=== PATIENT | female | born 1990 | race Caucasian/White ===

== ENCOUNTER 2020-06-11 12:45 | Emergency (ER) | payer MEDICAID, OTHER ==
[2020-06-11] MEDS ORDERED: Sodium Chloride 0.9% 10 ML Syringe FLUSH PRN (13:01)
[2020-06-11] MEDS ORDERED: Sodium Chloride 0.9% 2.5 ML Syringe FLUSH PRN (13:01)
[2020-06-11] MEDS ORDERED: Sodium Chloride 0.9% 1,000 ML IV ONE (13:02)
[2020-06-11] MEDS ORDERED: Ondansetron 4 MG/2 ML SDV IVPUSH ONE (13:13)
[2020-06-11] MEDS ORDERED: HYDROmorphone 1 MG/ML Syringe IVPUSH ONE (13:13)
--- NOTE | 2020-06-11 13:27 | EDM.PDOC ---
ED HPI GENERAL MEDICAL PROBLEM - General Chief Complaint: Flank Pain Stated Complaint: R ABD FLANK PAIN Time Seen by Provider: 06/11/20 12:47 Source of Information: Reports: Patient, EMS - History of Present Illness INITIAL COMMENTS - FREE TEXT/NARRATIVE: History of present illness: 29-year-old female presenting brought by EMS with right flank pain since 9:00 this morning. She reports she has been trying to bear with the pain but has not been able to control it at home. She tried hot shower. Nothing made it better. She did report that she felt she needed to go to the bathroom but that did not relieve the pain either. She also feels the pain is similar to a pulling sensation in her right flank. No vomiting. No fevers or chills. No abdominal pain. No prior similar pain. EMS reported patient was slightly tachycardic and hypertensive but otherwise vital signs stable. They did give her 30 mg of IV Toradol. Review of systems: As per history of present illness and below otherwise all systems reviewed and negative. Past medical history: As per history of present illness and as reviewed below otherwise noncontributory. Surgical history: As per history of present illness and as reviewed below otherwise noncontributory. Social history: No reported history of drug or alcohol abuse. Methamphetamine use Family history: As per history of present illness and as reviewed below otherwise noncontributory. Physical exam: GEN: no acute distress, well appearing HEENT: Atraumatic, normocephalic, mucous membranes moist, Neck: supple. Lungs: No respiratory distress. Heart: RRR Abdomen: Soft, nondistended, nontender. Back: Right flank tenderness / CVA tenderness Extremities: Atraumatic. Neurovascularly intact. Neuro: Awake, alert, oriented. Neuro Exam nonfocal. Skin: warm, dry, no lesions Diagnostics: ED, labs, UA Therapeutics: Pain meds, IV fluids, Zofran MDM: Impression: [] Plan: [] Definitive disposition and diagnosis as appropriate pending reevaluation and review of above. 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 Has not yet taken anything prior to arrival here. EMS did give her 30 of Toradol which did not help with her pain. She did receive Dilaudid here which did improve her pain. UA shows blood but no infection. CT scan shows 1 to 1.5 mm kidney stone at the UVJ causing hydro nephrosis. As the patient is feeling significantly improved now, will discharge home with urology follow-up. Discussed with patient strict return instructions as well as plan for pain management ibuprofen 600 mg every 8 hours with the addition of [place] if pain is severe and need to take Flomax daily. We will also discussed with urology to ensure rapid follow-up for the patient. Last Recorded V/S: Last Vital Signs Temp 97.6 F 06/11/20 12:54 Pulse 83 06/11/20 15:47 Resp 20 06/11/20 15:47 BP 132/87 06/11/20 15:47 Pulse Ox 99 06/11/20 15:47 - Orders/Labs/Meds Orders: Active Orders 24 hr Category Date Time Status Sodium Chloride 0.9% [Saline Flush] Med 06/11/20 13:01 Active 10 ml FLUSH ASDIRECTED PRN Sodium Chloride 0.9% [Saline Flush] Med 06/11/20 13:01 Active 2.5 ml FLUSH ASDIRECTED PRN Saline Lock Insert [OM.PC] Stat Oth 06/11/20 13:01 Ordered Medication Orders Sodium Chloride (Saline Flush) 10 ml FLUSH ASDIRECTED PRN PRN Reason: Keep Vein Open Sodium Chloride (Saline Flush) 2.5 ml FLUSH ASDIRECTED PRN PRN Reason: Keep Vein Open Labs: Laboratory Tests 06/11/20 06/11/20 06/11/20 Range/Units 12:49 12:49 13:57 WBC 13.85 H (4.0-11.0) K/uL RBC 5.00 (4.30-5.90) M/uL Hgb 14.5 (12.0-16.0) g/dL Hct 44.1 (36.0-46.0) % MCV 88.2 (80.0-98.0) fL MCH 29.0 (27.0-32.0) pg MCHC 32.9 (31.0-37.0) g/dL RDW Std Deviation 41.4 (28.0-62.0) fl RDW Coeff of [place] 13 (11.0-15.0) % Plt Count 316 (150-400) K/uL MPV 10.30 (7.40-12.00) fL Neut % (Auto) 84.7 H (48.0-80.0) % Lymph % (Auto) 10.0 L (16.0-40.0) % [place] % (Auto) 4.5 (0.0-15.0) % Eos % (Auto) 0.4 (0.0-7.0) % Baso % (Auto) 0.4 (0.0-1.5) % Neut # (Auto) 11.7 H (1.4-5.7) K/uL Lymph # (Auto) 1.4 (0.6-2.4) K/uL [place] # (Auto) 0.6 (0.0-0.8) K/uL Eos # (Auto) 0.1 (0.0-0.7) K/uL Baso # (Auto) 0.1 (0.0-0.1) K/uL Nucleated RBC % 0.0 /100WBC Nucleated RBCs # 0 K/uL Sodium (136-145) mmol/L Potassium (3.5-5.1) mmol/L Chloride (98-107) mmol/L Carbon Dioxide (21.0-32.0) mmol/L BUN (7.0-18.0) mg/dL Creatinine (0.6-1.0) mg/dL Est Cr Clr Drug Dosing mL/min Estimated GFR (MDRD) ml/min Glucose (74-106) mg/dL Calcium (8.5-10.1) mg/dL Total Bilirubin (0.2-1.0) mg/dL AST (15-37) IU/L ALT (14-63) IU/L Alkaline Phosphatase (46-116) U/L Total Protein (6.4-8.2) g/dL Albumin (3.4-5.0) g/dL Globulin (2.6-4.0) g/dL Albumin/Globulin Ratio (0.9-1.6) Lipase (73-393) U/L Urine Color YELLOW Urine Appearance CLOUDY Urine pH 5.5 (5.0-8.0) Ur Specific [place] >= 1.030 (1.001-1.035) Urine Protein 30 H (NEGATIVE) mg/dL Urine Glucose (UA) NEGATIVE (NEGATIVE) mg/dL Urine Ketones NEGATIVE (NEGATIVE) mg/dL Urine Occult Blood LARGE H (NEGATIVE) Urine Nitrite NEGATIVE (NEGATIVE) Urine Bilirubin NEGATIVE (NEGATIVE) Urine Urobilinogen 0.2 (<2.0) EU/dL Ur Leukocyte Esterase NEGATIVE (NEGATIVE) Urine RBC 1-2 (0-2/HPF) Urine WBC 0-1 (0-5/HPF) Ur Epithelial Cells RARE (NONE-FEW) Amorphous Sediment MANY (NEGATIVE) Urine Bacteria RARE (NEGATIVE) Urinalysis Comment Urine HCG, Qual NEGATIVE (NEGATIVE) 06/11/20 Range/Units 13:57 WBC (4.0-11.0) K/uL RBC (4.30-5.90) M/uL Hgb (12.0-16.0) g/dL Hct (36.0-46.0) % MCV (80.0-98.0) fL MCH (27.0-32.0) pg MCHC (31.0-37.0) g/dL RDW Std Deviation (28.0-62.0) fl RDW Coeff of [place] (11.0-15.0) % Plt Count (150-400) K/uL MPV (7.40-12.00) fL Neut % (Auto) (48.0-80.0) % Lymph % (Auto) (16.0-40.0) % [place] % (Auto) (0.0-15.0) % Eos % (Auto) (0.0-7.0) % Baso % (Auto) (0.0-1.5) % Neut # (Auto) (1.4-5.7) K/uL Lymph # (Auto) (0.6-2.4) K/uL [place] # (Auto) (0.0-0.8) K/uL Eos # (Auto) (0.0-0.7) K/uL Baso # (Auto) (0.0-0.1) K/uL Nucleated RBC % /100WBC Nucleated RBCs # K/uL Sodium 137 (136-145) mmol/L Potassium 4.0 (3.5-5.1) mmol/L Chloride 103 (98-107) mmol/L Carbon Dioxide 25.2 (21.0-32.0) mmol/L BUN 10 (7.0-18.0) mg/dL Creatinine 0.9 (0.6-1.0) mg/dL Est Cr Clr Drug Dosing 69.60 mL/min Estimated GFR (MDRD) > 60.0 ml/min Glucose 100 (74-106) mg/dL Calcium 8.6 (8.5-10.1) mg/dL Total Bilirubin 0.4 (0.2-1.0) mg/dL AST 18 (15-37) IU/L ALT 19 (14-63) IU/L Alkaline Phosphatase 87 (46-116) U/L Total Protein 8.2 (6.4-8.2) g/dL Albumin 4.0 (3.4-5.0) g/dL Globulin 4.2 H (2.6-4.0) g/dL Albumin/Globulin Ratio 1.0 (0.9-1.6) Lipase 180 (73-393) U/L Urine Color Urine Appearance Urine pH (5.0-8.0) Ur Specific [place] (1.001-1.035) Urine Protein (NEGATIVE) mg/dL Urine Glucose (UA) (NEGATIVE) mg/dL Urine Ketones (NEGATIVE) mg/dL Urine Occult Blood (NEGATIVE) Urine Nitrite (NEGATIVE) Urine Bilirubin (NEGATIVE) Urine Urobilinogen (<2.0) EU/dL Ur Leukocyte Esterase (NEGATIVE) Urine RBC (0-2/HPF) Urine WBC (0-5/HPF) Ur Epithelial Cells (NONE-FEW) Amorphous Sediment (NEGATIVE) Urine Bacteria (NEGATIVE) Urinalysis Comment Urine HCG, Qual (NEGATIVE) Meds: Medications Generic Name Dose Route Start Last Admin Trade Name Mina PRN Reason Stop Dose Admin Sodium Chloride 10 ml 06/11/20 13:01 Saline Flush FLUSH ASDIRECTED PRN Keep Vein Open Sodium Chloride 2.5 ml 06/11/20 13:01 Saline Flush FLUSH ASDIRECTED PRN Keep Vein Open Discontinued Medications Generic Name Dose Route Start Last Admin Trade Name Freq PRN Reason Stop Dose Admin Hydrocodone Bitart/Acetaminophen 1 tab 06/11/20 16:12 [place] 325-5 Mg PO 06/11/20 16:13 ONETIME ONE Hydromorphone HCl 1 mg 06/11/20 13:13 06/11/20 13:21 Dilaudid IVPUSH 06/11/20 13:14 1 mg ONETIME ONE Administration Sodium Chloride 1,000 mls @ 999 mls/hr 06/11/20 13:02 06/11/20 13:23 Normal Saline IV 06/11/20 14:02 999 mls/hr .Bolus ONE Administration Ondansetron HCl 4 mg 06/11/20 13:13 06/11/20 13:21 Zofran IVPUSH 06/11/20 13:14 4 mg ONETIME ONE Administration Tamsulosin HCl 0.4 mg 06/11/20 16:12 Flomax PO 06/11/20 16:13 ONETIME ONE - Re-Assessments/Exams Free Text/Narrative Re-Assessment/Exam: 06/11/20 16:05 Reassessed the patient, she is feeling much more comfortable. No acute distress. She reports that her pain was very well controlled with the pain medication though it is slightly returning now. Discussed results of the CT scan and UA and that the patient has 1 to 1.5 mm kidney stone causing hydronephrosis without infection. As the patient is feeling well, will discharge with outpatient urology follow-up. Patient agrees with this plan. 06/11/20 16:[address] Eden, who agrees with plan for outpatient follow-up and will see her in the office on Sunday. Departure - Departure Time of Disposition: 16:13 Disposition: Home, Self-Care 01 Clinical Impression: Hydronephrosis with obstructing calculus - Discharge Information Prescriptions: Tamsulosin [Tamsulosin 24 Hr] 0.4 mg PO DAILY #15 cap.er Ibuprofen 600 mg PO Q8H #30 tablet Acetaminophen/HYDROcodone [[place] 325-5 MG] 1 tab PO Q8H PRN #15 tablet PRN Reason: Pain (Severe 7-10) Instructions: Kidney Stones, [id number], Hydronephrosis, Flank Pain, Adult, [id number], Pain Medicine Instructions, [id number] Referrals: PCP,None [Primary Care Provider] - Jean Marie Eden MD [Physician] - 2 Days (Please follow-up with the urologist as soon as possible.) Forms: ED Department Discharge Additional Instructions: You have a kidney stone on your CT scan today. Please take ibuprofen 600 mg every 8 hours. If you still have pain after taking these medications you can also take one [place]. Please take the Flomax daily until you are seen and cleared by the urologist. If your pain becomes more severe or if you develop a fever or your pain is not controlled with this current regimen, please return to the emergency department for reassessment. The following information is given to patients seen in the emergency department who are being discharged to home. This information is to outline your options for follow-up care. We provide all patients seen in our emergency department with a follow-up referral. The need for follow-up, as well as the timing and circumstances, are variable depending upon the specifics of your emergency department visit. If you don't have a primary care physician on staff, we will provide you with a referral. We always advise you to contact your personal physician following an emergency department visit to inform them of the circumstance of the visit and for follow-up with them and/or the need for any referrals to a consulting specialist. The emergency department will also refer you to a specialist when appropriate. This referral assures that you have the opportunity for follow-up care with a specialist. All of these measure are taken in an effort to provide you with optimal care, which includes your follow-up. Under all circumstances we always encourage you to contact your private physician who remains a resource for coordinating your care. When calling for follow-up care, please make the office aware that this follow-up is from your recent emergency room visit. If for any reason you are refused follow-up, please contact the [facility] Emergency Department at and asked to speak to the emergency department charge nurse. Sepsis Event Note (ED) - Evaluation Sepsis Screening Result: No Definite Risk - Focused Exam Vital Signs: Vital Signs Temp Pulse Resp BP Pulse Ox 06/11/20 15:47 83 20 132/87 99 06/11/20 13:10 68 20 139/61 98 06/11/20 12:54 97.6 F 84 20 154/103 H 98 - My Orders Last 24 Hours: My Active Orders 06/11/20 13:01 Sodium Chloride 0.9% [Saline Flush] 10 ml FLUSH ASDIRECTED PRN Sodium Chloride 0.9% [Saline Flush] 2.5 ml FLUSH ASDIRECTED PRN Saline Lock Insert [OM.PC] Stat - Assessment/Plan Last 24 Hours: My Active Orders 06/11/20 13:01 Sodium Chloride 0.9% [Saline Flush] 10 ml FLUSH ASDIRECTED PRN Sodium Chloride 0.9% [Saline Flush] 2.5 ml FLUSH ASDIRECTED PRN Saline Lock Insert [OM.PC] Stat
[2020-06-11 14:32] LABS: BLOOD UREA NITROGEN,BUN 10 mg/dL (7.0-18.0); CARBON DIOXIDE,CO2 25.2 mmol/L (21.0-32.0); CHLORIDE,CL 103 mmol/L (98-107); GLUCOSE RANDOM 100 mg/dL (74-106); LIPASE 180 U/L (73-393); SODIUM,NA 137 mmol/L (136-145)
--- NOTE | 2020-06-11 15:19 | CT ---
CT abdomen and pelvis Technique: Multiple axial sections were obtained from above the dome of the diaphragm inferiorly through the pubic symphysis. Intravenous and oral contrast was not utilized. Study was performed as ureteral stone protocol. Findings: Dilated right collecting system and right ureter are noted. Findings appear to be caused by a small 1 to 1.5 mm stone within the distal right ureter slightly proximal to the UVJ. No other abnormal calcifications are seen along the course of the ureters. No renal calculi are seen. Other findings: Visualized lung bases show nothing acute. Liver contains no focal parenchymal abnormality. Spleen appears within normal limits. Adrenal glands show no nodule. Gallbladder contains no calcified gallstones. Aorta shows no aneurysm. No retroperitoneal adenopathy or mesenteric abnormalities are seen. No pelvic mass or adenopathy is seen. Appendix is seen and believed to be normal. No pelvic mass or adenopathy is seen. Impression: 1. Dilated collecting system of the right kidney as well as dilated right ureter. These findings are felt to be caused by a small 1 to 1.5 mm stone within the distal right ureter close to the UVJ. 2. No other acute finding is appreciated on noncontrast CT study of the abdomen and pelvis. Diagnostic code #3 This report was dictated in MDT
[2020-06-11] MEDS ORDERED: Tamsulosin 0.4 MG Cap.ER PO ONE (16:12)
[2020-06-11] MEDS ORDERED: Acetaminophen/HYDROcodone 325-5 MG Tab PO ONE (16:12)
== END 2020-06-11 16:37 | disposition home or self-care (01) ==
LOC: MW.ED 12:45
DX: N13.2 Hydronephrosis with renal and ureteral calculous obstruction (principal)
CPT/HCPCS: 36415; 74176; 80053; 81001; 81025; 83690; 85025; 96374; 96375; 99284; A9270; J1170; J2405; J7030; 99283

== ENCOUNTER 2021-10-12 15:41 | Emergency (ER) | payer SELFPAY ==
[2021-10-12] MEDS ORDERED: Sodium Chloride 0.9% 2.5 ML Syringe FLUSH PRN (16:01)
[2021-10-12] MEDS ORDERED: Sodium Chloride 0.9% 10 ML Syringe FLUSH PRN (16:01)
[2021-10-12 17:04] LABS: BLOOD UREA NITROGEN,BUN 14 mg/dL (7.0-18.0); CARBON DIOXIDE,CO2 27.2 mmol/L (21.0-32.0); CHLORIDE,CL 104 mmol/L (98-107); GLUCOSE RANDOM 83 mg/dL (74-106); LIPASE 294 U/L (73-393); SODIUM,NA 137 mmol/L (136-145)
--- NOTE | 2021-10-12 17:40 | EDM.PDOC ---
ED HPI GENERAL MEDICAL PROBLEM - General Chief Complaint: Abdominal Pain Stated Complaint: STOMACH PAINS Time Seen by Provider: 10/12/21 15:42 Source of Information: Reports: Patient History Limitations: Reports: No Limitations - History of Present Illness INITIAL COMMENTS - FREE TEXT/NARRATIVE: HISTORY AND PHYSICAL: History of present illness: Patient is a 31 otherwise [id number] female who presents emergency room today with concern of right lower quadrant abdominal pain, nausea/dry heaving, and "looser" stools x2 to 3 days. Patient states that her abdominal pain is lower grade but states that her is a nurse and he was concerned that she was starting developed a possible appendicitis. Patient states that she is sexually active with her , not on control but they are "careful ". Patient states her last menstrual cycle was 2 to 3 weeks ago and was normal for her. Patient states that she began having the symptoms and was concerned that she had food poisoning but states that she never got incredibly sick like she has in the past with food poisoning. Patient states she has not taken anything for her symptoms and denies any other symptoms or concerns. Patient denies fever, chills, chest pain, shortness of breath, or cough. Denies headache, neck stiff ness, change in vision, syncope, or near syncope. Denies constipation, or dysuria. Has not noted any blood in urine or stool. Review of systems: As per history of present illness and below otherwise all systems reviewed and negative. Past medical history: As per history of present illness and as reviewed below otherwise noncontributory. Surgical history: As per history of present illness and as reviewed below otherwise noncontributory. Social history: See social history for further information Family history: As per history of present illness and as reviewed below otherwise noncontributory. Physical exam: General: Patient is alert, oriented, and in no acute distress. Patient sitting comfortably on exam table. Vitals stable and reviewed by me. HEENT: Atraumatic, normocephalic, pupils equal and reactive bilaterally, negative for conjunctival pallor or scleral icterus, mucous membranes moist, throat clear, neck supple, nontender, trachea midline. No drooling or trismus noted. No meningeal signs. No hot potato voice noted. Lungs: Clear to auscultation, breath sounds equal bilaterally, chest nontender. Heart: S1S2, regular rate and rhythm without overt murmur Abdomen: Physical exam of abdomen is limited due to body habitus. Otherwise, soft, nondistended,moderate RLQ tenderness. Negative for masses or hepatosplenomegaly. Negative for costovertebral tenderness. Pelvis: Stable nontender. Genitourinary: Deferred. Rectal: Deferred. Skin: Intact, warm, dry. No lesions or rashes noted. Extremities: Atraumatic, negative for cords or calf pain. Neurovascular unremarkable. Neuro: Awake, alert, oriented. Cranial nerves II through XII unremarkable. Cerebellum unremarkable. Motor and sensory unremarkable throughout. Exam nonfocal. Medical Decision Making: Patient is an otherwise healthy 31-year-old female presented to emergency room today with concern of right lower quadrant abdominal pain, nausea/dry heaving, and looser stools. Upon arrival to the ED, patient is vitally stable and well- appearing on exam with moderate RLQ tenderness. CBC does show mild leukocytosis with white blood cell count at 11.65, otherwise mild derangements of CBC are unremarkable. CMP mild derangements are unremarkable. hCG is negative. Urinalysis clear Abdominal pelvic CT shows dilated appendix, measuring up to 19 mm in luminal dimension. There is opacity of the periappendiceal inflammatory changes, and findings are suspicious for mucocele of the appendix. There is no drainable fluid collection, bowel obstruction, or free air. Recommend surgical consult. I did call and speak to the general surgery on-call, Dr. Rosales, and he will come in to personally see and evaluate the patient. I went in to inform patient of Dr. Rosales coming to evaluate her in the emergency room, however, patient had eloped the the ED without informing any staff or myself. I did not have the chance to discuss patient's imaging finding with her and she is unaware of any findings from this visit as she eloped the emergency room. I did try to call both of the phone numbers provided on chart, however, these are not phone numbers that are active and does not even go through to a answering service as these numbers do not exist. We also called law enforcement who did a welfare check given the address provided and were informed that this was not a actual address for patient. Unable to get a hold of patient to discuss any findings or any further plan of care. Diagnostics: CBC, CMP, UA, lipase, hCG, abdominal pelvic CT scan with contrast Therapeutics: Eloped the ED Prescription: Eloped the ED Impression: Dilated appendix with RLQ abdominal pain Eloped the ED Plan: Patient eloped the emergency room prior to discharge Definitive disposition and diagnosis as appropriate pending reevaluation and review of above. RLQ Pain Score (Numeric/FACES): 4 - Related Data Allergies Allergy/AdvReac Type Severity Reaction Status Date / Time No Known Allergies Allergy Verified 10/12/21 15:53 Home Meds: Home Meds . 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 Musculoskeletal History: Reports: None Neurological History: Reports: None Psychiatric History: Reports: Addiction Endocrine/Metabolic History: Reports: None Hematologic History: Reports: None Immunologic History: Reports: None Oncologic (Cancer) History: Reports: None Dermatologic History: Reports: None - Infectious Disease History Infectious Disease History: Reports: Chicken Pox - Past Surgical History Head Surgeries/Procedures: Reports: None HEENT Surgical History: Reports: None Cardiovascular Surgical History: Reports: None Respiratory Surgical History: Reports: None GI Surgical History: Reports: None Female Surgical History: Reports: Section Endocrine Surgical History: Reports: None Neurological Surgical History: Reports: None Musculoskeletal Surgical History: Reports: None Oncologic Surgical History: Reports: None Dermatological Surgical History: Reports: None Social & Family History - Family History Family Medical History: No Pertinent Family History - Tobacco Use Tobacco Use Status *Q: Current Every Day Tobacco User Years of Tobacco use: 1 Packs/Tins Daily: 0.4 - Caffeine Use Caffeine Use: Reports: None - Recreational Drug Use Recreational Drug Use: No ED ROS GENERAL - Review of Systems Review Of Systems: Comprehensive ROS is negative, except as noted in HPI. ED EXAM, GENERAL - Physical Exam Exam: See Below (see dictation) Course - Vital Signs Last Recorded V/S: Last Vital Signs Temp 96.1 F L 10/12/21 15:53 Pulse 86 10/12/21 17:40 Resp 16 10/12/21 17:40 BP 168/92 H 12/15/21 17:40 Pulse Ox 100 10/12/21 17:40 - Orders/Labs/Meds Labs: Laboratory Tests 10/12/21 10/12/21 10/12/21 Range/Units 16:14 16:14 16:14 WBC 11.65 H (4.0-11.0) K/uL RBC 5.00 (4.30-5.90) M/uL Hgb 14.3 (12.0-16.0) g/dL Hct 44.2 (36.0-46.0) % MCV 88.4 (80.0-98.0) fL MCH 28.6 (27.0-32.0) pg MCHC 32.4 (31.0-37.0) g/dL RDW Std Deviation 42.6 (28.0-62.0) fl RDW Coeff of [place] 13 (11.0-15.0) % Plt Count 365 (150-400) K/uL MPV 10.40 (7.40-12.00) fL Neut % (Auto) 58.1 (48.0-80.0) % Lymph % (Auto) 29.1 (16.0-40.0) % Karnes % (Auto) 9.5 (0.0-15.0) % Eos % (Auto) 2.7 (0.0-7.0) % Baso % (Auto) 0.6 (0.0-1.5) % Neut # (Auto) 6.8 H (1.4-5.7) K/uL Lymph # (Auto) 3.4 H (0.6-2.4) K/uL Karnes # (Auto) 1.1 H (0.0-0.8) K/uL Eos # (Auto) 0.3 (0.0-0.7) K/uL Baso # (Auto) 0.1 (0.0-0.1) K/uL Nucleated RBC % 0.0 /100WBC Nucleated RBCs # 0 K/uL Sodium 137 (136-145) mmol/L Potassium 4.0 (3.5-5.1) mmol/L Chloride 104 (98-107) mmol/L Carbon Dioxide 27.2 (21.0-32.0) mmol/L BUN 14 (7.0-18.0) mg/dL Creatinine 0.7 (0.6-1.0) mg/dL Est Cr Clr Drug Dosing 83.64 mL/min Estimated GFR (MDRD) > 60.0 ml/min Glucose 83 (74-106) mg/dL Calcium 8.6 (8.5-10.1) mg/dL Total Bilirubin 0.1 L (0.2-1.0) mg/dL AST 15 (15-37) IU/L ALT 22 (14-63) IU/L Alkaline Phosphatase 98 (46-116) U/L Total Protein 7.3 (6.4-8.2) g/dL Albumin 3.2 L (3.4-5.0) g/dL Globulin 4.1 H (2.6-4.0) g/dL Albumin/Globulin Ratio 0.8 L (0.9-1.6) Lipase 294 (73-393) U/L HCG, Qual NEGATIVE (NEG) Urine Color Urine Appearance Urine pH (5.0-8.0) Ur Specific Copen (1.001-1.035) Urine Protein (NEGATIVE) mg/dL Urine Glucose (UA) (NEGATIVE) mg/dL Urine Ketones (NEGATIVE) mg/dL Urine Occult Blood (NEGATIVE) Urine Nitrite (NEGATIVE) Urine Bilirubin (NEGATIVE) Urine Urobilinogen (<2.0) EU/dL Ur Leukocyte Esterase (NEGATIVE) Influenza Type A RNA (NEGATIVE) Influenza Type B RNA (NEGATIVE) SARS-CoV-2 RNA (KRISTEN) (NEGATIVE) 10/12/21 10/12/21 Range/Units 16:17 17:31 WBC (4.0-11.0) K/uL RBC (4.30-5.90) M/uL Hgb (12.0-16.0) g/dL Hct (36.0-46.0) % MCV (80.0-98.0) fL MCH (27.0-32.0) pg MCHC (31.0-37.0) g/dL RDW Std Deviation (28.0-62.0) fl RDW Coeff of [place] (11.0-15.0) % Plt Count (150-400) K/uL MPV (7.40-12.00) fL Neut % (Auto) (48.0-80.0) % Lymph % (Auto) (16.0-40.0) % Karnes % (Auto) (0.0-15.0) % Eos % (Auto) (0.0-7.0) % Baso % (Auto) (0.0-1.5) % Neut # (Auto) (1.4-5.7) K/uL Lymph # (Auto) (0.6-2.4) K/uL Karnes # (Auto) (0.0-0.8) K/uL Eos # (Auto) (0.0-0.7) K/uL Baso # (Auto) (0.0-0.1) K/uL Nucleated RBC % /100WBC Nucleated RBCs # K/uL Sodium (136-145) mmol/L Potassium (3.5-5.1) mmol/L Chloride (98-107) mmol/L Carbon Dioxide (21.0-32.0) mmol/L BUN (7.0-18.0) mg/dL Creatinine (0.6-1.0) mg/dL Est Cr Clr Drug Dosing mL/min Estimated GFR (MDRD) ml/min Glucose (74-106) mg/dL Calcium (8.5-10.1) mg/dL Total Bilirubin (0.2-1.0) mg/dL AST (15-37) IU/L ALT (14-63) IU/L Alkaline Phosphatase (46-116) U/L Total Protein (6.4-8.2) g/dL Albumin (3.4-5.0) g/dL Globulin (2.6-4.0) g/dL Albumin/Globulin Ratio (0.9-1.6) Lipase (73-393) U/L HCG, Qual (NEG) Urine Color YELLOW Urine Appearance CLEAR Urine pH 7.5 (5.0-8.0) Ur Specific Copen 1.015 (1.001-1.035) Urine Protein NEGATIVE (NEGATIVE) mg/dL Urine Glucose (UA) NEGATIVE (NEGATIVE) mg/dL Urine Ketones NEGATIVE (NEGATIVE) mg/dL Urine Occult Blood NEGATIVE (NEGATIVE) Urine Nitrite NEGATIVE (NEGATIVE) Urine Bilirubin NEGATIVE (NEGATIVE) Urine Urobilinogen 0.2 (<2.0) EU/dL Ur Leukocyte Esterase NEGATIVE (NEGATIVE) Influenza Type A RNA NEGATIVE (NEGATIVE) Influenza Type B RNA NEGATIVE (NEGATIVE) SARS-CoV-2 RNA (KRISTEN) NEGATIVE (NEGATIVE) Meds: Medications Discontinued Medications Generic Name Dose Route Start Last Admin Trade Name Freq PRN Reason Stop Dose Admin Iopamidol 100 ml 10/12/21 18:02 10/12/21 18:02 Iopamidol 755 Mg/Ml 500 Ml Multipack Bottle IVPUSH 10/12/21 18:03 100 ml ONETIME STA Administration Sodium Chloride 10 ml 10/12/21 16:01 10/12/21 16:22 Sodium Chloride 0.9% 10 Ml Syringe FLUSH 10 ml ASDIRECTED PRN Administration Keep Vein Open Sodium Chloride 2.5 ml 10/12/21 16:01 10/12/21 16:21 Sodium Chloride 0.9% 2.5 Ml Syringe FLUSH 2.5 ml ASDIRECTED PRN Administration Keep Vein Open Departure - Departure Time of Disposition: 12:23 Disposition: Eloped 07 Clinical Impression: Mucocele of appendix, Abdominal pain, Eloped from emergency department - Discharge Information Referrals: PCP,None [Primary Care Provider] - Forms: ED Department Discharge Additional Instructions: Patient eloped the emergency room Sepsis Event Note (ED) - Evaluation Sepsis Screening Result: No Definite Risk
[2021-10-12] MEDS ORDERED: Iopamidol 755 MG/ML 500 ML Multipack Bottle IVPUSH STA (18:02)
[2021-10-12 18:32] LABS: CORONAVIRUS COVID-19 NAA NEGATIVE (NEGATIVE); INFLUENZA A NAA NEGATIVE (NEGATIVE); INFLUENZA B NAA NEGATIVE (NEGATIVE)
--- NOTE | 2021-10-12 19:05 | CT ---
HISTORY: Right lower quadrant abdominal pain. COMPARISON: None. Technique: CT of the abdomen and pelvis. 100 cc of Isovue 370 IV. Coronal/sagittal reconstruction images. Findings: Lung bases: No pleural or pericardial effusion. Heart size is normal. There is no acute airspace disease. There is no basilar pneumothorax. There is no suspicious pulmonary nodule. Abdomen/pelvis: The included segments of the liver, gallbladder, spleen, adrenal glands, and kidneys are normal. There is no hydronephrosis. There is no perinephric edema. There is no solid renal mass. There is no pancreatic mass or glandular atrophy. Urinary bladder is normal. No adnexal mass. Perivesical fat is normal. Uterine corpus is normal. There is a dilated appendix without associated inflammatory changes. This measures up to 19 millimeters in dimension. See image 130 of series 201. The findings are suspicious for mucocele of the appendix, and surgical consultation is advised. No drainable fluid collection. There is no inguinal, pelvic sidewall, retroperitoneal, or gastrohepatic ligament adenopathy. The visceral artery branches are patent. No abdominal aortic aneurysm. The bone windows demonstrate no suspicious bone lesions. On sagittal reconstruction images, vertebral body heights are maintained. Impression: 1. Dilated appendix, measuring up to 19 millimeters in luminal dimension. 2. There is a paucity of periappendiceal inflammatory changes, and the findings are suspicious for a mucocele of the appendix. 3. There is no drainable fluid collection, bowel obstruction, or free air. 4. Surgical consultation is suggested for these findings. 5. Report called to Dr. Sánchez, Emergency Department, 10/12/21, 1902 hours. Please note that all CT scans at this facility use dose modulation, iterative reconstruction, and/or weight-based dosing when appropriate to reduce radiation dose to as low as reasonably achievable. Dictated by Dru Arreaga MD @ 10/12/2021 7:03:23 PM (Electronically Signed)
== END 2021-10-12 20:50 | disposition left against medical advice (07) ==
LOC: MW.ED 15:41
DX: K38.8 Other specified diseases of appendix (principal); D72.829 Elevated white blood cell count, unspecified; Z72.0 Tobacco use; Z20.822 Contact with and (suspected) exposure to COVID-19
CPT/HCPCS: 0240U; 36415; 74177; 80053; 81003; 83690; 84703; 85025; 99284; Q9967

== ENCOUNTER 2021-11-20 17:27 | Day surgery (SDC) | payer MEDICAID ==
[2021-11-20] MEDS ORDERED: Sodium Chloride 0.9% 1,000 ML IV ONE (18:15)
[2021-11-20] MEDS ORDERED: Sodium Chloride 0.9% 10 ML Syringe FLUSH PRN (18:15)
[2021-11-20] MEDS ORDERED: Sodium Chloride 0.9% 2.5 ML Syringe FLUSH PRN (18:15)
[2021-11-20 19:26] LABS: BLOOD UREA NITROGEN,BUN 10 mg/dL (7.0-18.0); CHLORIDE,CL 104 mmol/L (98-107); GLUCOSE RANDOM 98 mg/dL (74-106); LIPASE 246 U/L (73-393); POTASSIUM,K 4.2 mmol/L (3.5-5.1); SODIUM,NA 141 mmol/L (136-145)
[2021-11-20] MEDS ORDERED: Iopamidol 755 MG/ML 500 ML Multipack Bottle IVPUSH ONE (19:41)
[2021-11-20] MEDS ORDERED: cefTRIAXone 2 GM in Premix Bag 1 BAG IV ONE (20:53)
[2021-11-20] MEDS ORDERED: Lidocaine 2% 5 ML SDV ONE (22:47)
[2021-11-20] MEDS ORDERED: Dexamethasone 4 MG/ML 5 ML MDV ONE (22:47)
[2021-11-20] MEDS ORDERED: Rocuronium Bromide 50 MG/5 ML Syringe ONE (22:47)
[2021-11-20] MEDS ORDERED: Dexmedetomidine 200 MCG/2 ML SDV ONE (22:47)
[2021-11-20] MEDS ORDERED: Esmolol 100 MG/10 ML SDV ONE (22:48)
[2021-11-20] MEDS ORDERED: Propofol 200 MG/20 ML SDV ONE (22:48)
[2021-11-20] MEDS ORDERED: Water For Injection, Sterile 20 ML ONE (22:48)
[2021-11-20] MEDS ORDERED: fentaNYL 100 MCG/2 ML SDV ONE (22:48)
[2021-11-20] MEDS ORDERED: Midazolam 1 MG/ML 2 ML SDV ONE (22:48)
[2021-11-20] MEDS ORDERED: Bupivacaine 0.5% 30 ML SDV ONE (23:01)
[2021-11-21] MEDS ORDERED: Metoclopramide 10 MG/2 ML SDV IVPUSH PRN (00:27)
[2021-11-21] MEDS ORDERED: Ondansetron 4 MG/2 ML SDV IVPUSH PRN ×2 (00:27→01:31)
[2021-11-21] MEDS ORDERED: fentaNYL 100 MCG/2 ML SDV IVPUSH PRN (00:27)
[2021-11-21] MEDS ORDERED: Naloxone 0.4 MG/ML SDV IVPUSH PRN (00:27)
[2021-11-21] MEDS ORDERED: Albuterol 0.083% 2.5 MG/3 ML Neb Soln NEB PRN (00:27)
[2021-11-21] MEDS ORDERED: HYDROmorphone 1 MG/ML Syringe IVPUSH PRN ×2 (00:27→02:22)
[2021-11-21] MEDS ORDERED: Ketorolac 30 MG/ML SDV ONE (00:45)
[2021-11-21] MEDS ORDERED: Ondansetron 4 MG/2 ML SDV ONE (00:45)
[2021-11-21] MEDS ORDERED: Sugammadex Sodium 200 MG/2 ML VIAL ONE (00:45)
[2021-11-21] MEDS ORDERED: ePHEDrine 50 MG/ML SDV ONE (00:58)
[2021-11-21] MEDS ORDERED: Rocuronium Bromide 50 MG/5 ML Syringe ONE (01:03)
[2021-11-21] MEDS ORDERED: Morphine 2 MG/ML SYRINGE IVPUSH PRN (01:04)
[2021-11-21] MEDS ORDERED: HYDROmorphone 2 MG/ML Syringe IVPUSH PRN (01:31)
[2021-11-21] MEDS ORDERED: Lactated Ringers 1,000 ML IV SCH (01:45)
[2021-11-21] MEDS: Acetaminophen/HYDROcodone 325-5 MG Tab PO PRN ×2 (03:45→12:44)
== END 2021-11-21 14:06 ==
LOC: MW.ED 17:27 → MW.SDS 22:33 → MW.ED 23:48 → MW.MS 11-21 02:05 → MW.SDS 11-21 14:06
PROVIDERS: ATTEND Surgery
DX: D37.3 Neoplasm of uncertain behavior of appendix (principal); U07.1 COVID-19; K38.8 Other specified diseases of appendix; F17.210 Nicotine dependence, cigarettes, uncomplicated
CPT/HCPCS: 36415; 74177; 74177-26; 80053; 81003; 81025; 83690; 85025; 96365; 99285-25; A9270-GY; J0131; J0330; J0696; J1100; J1885; J2250; J2405; J2704; J3010; J3490; J7030; J7120; Q9967; U0002

== ENCOUNTER 2023-04-11 20:17 | Emergency (ER) | payer MEDICAID ==
[2023-04-11] MEDS ORDERED: Acetaminophen/oxyCODONE 325-5 MG Tab PO ONE (21:27)
[2023-04-11] MEDS ORDERED: Amoxicillin/Clavulanate K 875-125 MG Tab PO ONE (21:27)
== END 2023-04-11 21:45 | disposition home or self-care (01) ==
LOC: MW.ED 20:17
DX: K04.7 Periapical abscess without sinus (principal); Z86.16 Personal history of COVID-19
CPT/HCPCS: 99282; A9270

== ENCOUNTER 2023-10-10 12:31 | Emergency (ER) | payer OTHER | END 2023-10-10 15:15 | disposition home or self-care (01) | LOC: MW.ED 12:31 | DX: M25.512 Pain in left shoulder (principal); F17.210 Nicotine dependence, cigarettes, uncomplicated; Z86.16 Personal history of COVID-19; Z98.890 Other specified postprocedural states; V89.2XXA Person injured in unspecified motor-vehicle accident, traffic, initial encounter; Y92.410 Unspecified street and highway as the place of occurrence of the external cause | CPT/HCPCS: 99283 ==

== ENCOUNTER 2024-10-27 15:02 | Emergency (ER) | payer SELFPAY ==
[2024-10-27] MEDS: predniSONE 20 MG Tab PO ONE (15:59)
[2024-10-27] MEDS: Albuterol/Ipratropium 3.0-0.5 MG/3 ML Neb Soln NEB ONE (15:59)
== END 2024-10-27 17:05 | disposition home or self-care (01) ==
LOC: MW.ED 15:02
DX: J06.9 Acute upper respiratory infection, unspecified (principal); H66.002 Acute suppurative otitis media without spontaneous rupture of ear drum, left ear; Z86.16 Personal history of COVID-19; Z90.49 Acquired absence of other specified parts of digestive tract
CPT/HCPCS: 87428; 87651; 99285; A9270; J7620-GY